=== PATIENT | female | born 1965 | race Caucasian/White ===

== ENCOUNTER 2019-12-02 14:34 | Outpatient (CLI) | payer MEDICAID, SELFPAY ==
--- NOTE | 2019-12-02 14:45 | XRR_ITS ---
PROCEDURE INFORMATION: Exam: XR Abdomen, 1 View Exam date and time: 12/02/2019 2:50 PM Age: 54 years old Clinical indication: Condition or disease; Other: Renal stone; Prior surgery; Surgery date: 6+ months; Surgery type: Stents, since removed TECHNIQUE: Imaging protocol: XR of the abdomen. Views: Frontal supine view of the abdomen. 1 View. COMPARISON: CR XR KUB [id number] 08/11/2019 1:04 PM FINDINGS: Gastrointestinal tract: Normal. No bowel dilation. Organs: Findings are suggestive of multifocal punctate renal calcifications. Bones/joints: Unremarkable. XR/XR KUB [id number] IMPRESSION: If there is desire for further evaluation, a CT scan could be performed. If there is desire for further evaluation, a CT scan could be performed.
== END 2019-12-02 14:35 | disposition home or self-care (01) ==
LOC: RAD 14:36
PROVIDERS: Family Provider Family Medicine; PCP Family Medicine; Visit Provider Urology
DX: N20.0 Calculus of kidney (principal); N30.10 Interstitial cystitis (chronic) without hematuria; N11.9 Chronic tubulo-interstitial nephritis, unspecified; N30.20 Other chronic cystitis without hematuria
CPT/HCPCS: 74018; 81001

== ENCOUNTER → 2020-03-07 11:12 | Outpatient (BNVA) | payer MEDICAID, SELFPAY | PROVIDERS: Family Provider Family Medicine; PCP Family Medicine; Visit Provider Urology | DX: N30.10 Interstitial cystitis (chronic) without hematuria (principal); N20.0 Calculus of kidney; N11.9 Chronic tubulo-interstitial nephritis, unspecified | CPT/HCPCS: 81001 ==

== ENCOUNTER 2020-06-06 02:25 | Emergency (ER) | payer MEDICAID, SELFPAY ==
[2020-06-06 02:31] VITALS: BP 124/72; PULSE 91; RESP 18; TEMP 36.6; O2SAT 96; BMI 29.0
--- NOTE | 2020-06-06 02:53 | ED_ITS ---
HPI - Abdominal Pain General: Chief Complaint: Abdominal Pain Stated Complaint: hasnt passed anything in a week Time Seen by Provider: 06/06/20 02:36 History of Present Illness: HPI narrative: 54-year-old female presents with abdominal pain, distention, and constipation. She says that she has not had a bowel movement in several days. She is tried laxatives as well as an enema at home. She started vomiting yesterday evening, and this continues this morning. She has had a low-grade temperature of 99-100 the past couple of days as well. No sick contacts. No respiratory symptoms. MD elicited complaint: abdominal pain Pertinent past history: constipation Onset (ago): day(s) Pain Consistency: constant Location: Diffuse Quality: aching and fullness Radiation: none Migration to: no migration Exacerbating factors: nothing Associated Symptoms: Reports bloating, constipation, fever(s), nausea and vomiting; Denies coffee ground emesis, diarrhea, dysuria, hematuria, hematemesis and melena Review of Systems Const: Reports: fever(s) Eyes: Denies: change in vision or blurry vision ENMT: Denies: swelling of lips/tongue, bleeding gums, change in hearing, epistaxis, post nasal drip or sinus pain Card: Denies: chest pain, palpitations or irregular heart rhythm Resp: Denies: dyspnea, productive cough, non-productive cough or wheezing GI: Reports: nausea, vomiting, constipation and bloating; Denies: hematemesis, coffee ground emesis, diarrhea or melena : Denies: dysuria, urinary frequency or hematuria Musc: Denies: neck pain or back pain Skin/Breast: Denies: rash or pruritus Neuro: Denies: headache(s), dizziness or vertigo Psych: Denies: anxiety Physical Exam Const: GENERAL APPEARANCE: well developed ORIENTATION/CONSCIOUSNESS: Yes oriented to person, Yes oriented to place and Yes oriented to time HENMT: COMMON NORMALS: normocephalic, external ears normal and Normal external nose present HEAD & SCALP: normocephalic FACE & SINUS: normal facial exam NOSE: Normal external nose present and No nasal discharge present EXTERNAL EAR: Yes external ears normal Eye: COMMON NORMALS: Equal, round and reactive pupils present, EOMs intact bilaterally and conjunctivae normal EYELID: eyelids normal CONJUNCTIVA: Yes conjunctivae normal PUPIL: Yes Equal, round and reactive pupils present Neck/C-Spine: GENERAL: No tracheal deviation Chest: COMMONS NORMALS: normal inspection of the chest CHEST: No tenderness Resp: COMMON NORMALS: clear to auscultation bilaterally EFFORT & INSPECTION: No tachypneic, No respiratory distress, No retractions, No uses accessory muscles and No tracheal deviation AUSCULTATION: clear to auscultation bilaterally, no rhonchi, no wheezes and lung sounds not diminished Cardio: COMMON NORMALS: regular rate and regular rhythm RATE: regular rate RHYTHM: regular rhythm HEART SOUNDS: no murmurs PERIPHERAL PULSES: radial pulses present GI: INSPECTION: No abdominal distension AUSCULTATION: No Hyperactive bowel sounds present and No Hypoactive bowel sounds present PALPATION: Yes Tenderness to palpation present (GI) (diffuse), Yes Guarding due to palpation p resent (GI) and No Rigid due to palpation PERCUSSION: no dullness to percussion and no tympanic to percussion Neuro: SENSORIUM/ORIENTATION: Yes oriented to person, Yes oriented to place and Yes oriented to time Psych: COMMON NORMALS: mental status grossly normal Skin: COMMON NORMALS: no rashes or lesions noted GENERAL SKIN EXAM: no rashes or lesions noted Course Vital Signs: Vital signs: Vital Signs Temperature 97.9 F 06/06/20 02:31 Pulse Rate 101 H 06/06/20 04:00 Respiratory Rate 16 06/06/20 04:00 Blood Pressure 105/73 06/06/20 04:00 Pulse Oximetry 92 06/06/20 04:00 MDM - Abdominal Pain MDM Narrative: Medical decision making narrative: 54-year-old female who reports constipation, with vomiting. Her white blood cell count is 4.4. Labs are otherwise benign. She denied significant fever or cough. CT scan shows s ome increased stool. There are densities at the bases of the lungs consistent with possible infiltrates. Again she is asymptomatic with this. Because of this, though, she will be tested for novel coronavirus. Magnesium citrate causes interstitial cystitis flares for her. Instead she will be given a prep of mineral oil and lactulose here. Lactulose for home. Lab Data: Labs: Lab Results 06/06/20 06/06/20 06/06/20 Range/Units 03:06 03:06 03:15 WBC 4.4 (4.0-10.0) 10^3/ uL RBC 4.38 (4.1-5.3) 10^6/u L Hgb 13.1 (11.5-15.3) g/dL Hct 39.7 (37.0-47.0) % MCV 90.6 (81-99) fL MCH 29.9 (28.0-34.0) pg MCHC 33.0 (30.0-36.0) g/dL RDW 12.0 L (12.1-15.1) % Plt Count 157 (130-400) 10^3/c mm MPV 9.9 (7.4-10.4) fL Neut % (Auto) 73.7 % Lymph % (Auto) 18.3 % [place] % (Auto) 7.8 % Eos % (Auto) 0.0 % Baso % (Auto) 0.0 % Neut # (Auto) 3.23 (1.8-7.7) 10^3/u L Lymph # (Auto) 0.8 (0.8-4.8) 10^3/u L [place] # (Auto) 0.3 (0.2-0.9) 10^3/u L Eos # (Auto) 0.0 (0.0-0.8) 10^3/u L Baso # (Auto) 0.0 (0.0-0.1) 10^3/u L Nucleated RBC % (a uto) 0 % Nucleated RBCs # 0.0 /100WBC Sodium 133 L (136-145) mmol/L Potassium 3.9 (3.5-5.1) mmol/L Chloride 97 L (98-107) mmol/L Carbon Dioxide 25 (22-29) mmol/L Anion Gap 14.9 (5-19) BUN 12 (6-20) mg/dL Creatinine 0.7 (0.5-0.9) mg/dL GFR Calculation 86.9 L (90-130) mL/min Glucose 117 H (65-115) mg/dL Calculated Osmolal ity 273 L (285-295) mOsm/k g Calcium 8.9 (8.5-10.5) mg/dL Total Bilirubin 0.2 (0.15-1.2) mg/dL AST 28 (0-32) U/L ALT 18 (0-33) U/L Alkaline Phosphata se 73 (35-105) IU/L Creatine Kinase 150 (26-192) U/L C-Reactive Protein 8.2 H (0.0-4.9) mg/L Total Protein 7.3 (6.6-8.7) g/dL Albumin 4.2 (3.5-5.2) g/dL Globulin 3.1 (1.3-4.6) g/dL Lipase 76 H (13-60) U/L Urine Color Yellow (Yellow) Urine Appearance Clear (CLEAR) Urine pH 5 (5-7) Ur Specific Gravit y 1.020 (1.005-1.030) Urine Protein Trace (Negative) Urine Glucose (UA) Norm (Normal) Urine Ketones 3+ H (Negative) Urine Blood 2+ H (Negative) Urine Nitrate Negative (Negative) Urine Bilirubin 1+ H (NEGATIVE) Urine Urobilinogen 1 H (Negative) mg/dL Ur Leukocyte Malgorzata ase Trace H (Negative) Urine RBC 0-4 H (0-2) /hpf Urine WBC 10-15 H (0-5) /hpf Ur Squamous Epith Cells 15-25 H (0-5) Amorphous Sediment Not Reportable Urine Bacteria 1+ H (NONE) Hyaline Casts 0-4 H Fine Granular Cast s 0-4 H /lpf Urine Mucus 1+ Discharge Plan Discharge Patient Disposition: Home Clinical Impression: Abdominal pain Qualifiers: Abdominal location: generalized Qualified Code(s): R10.84 - Generalized abdominal pain Constipation Qualifiers: Constipation type: unspecified constipation type Qualified Code(s): K59.00 - Constipation, unspecified Condition: Stable Prescriptions: New lactulose 10 gram/15 mL solution 20 gm PO BID Qty: 237 RF: 0 Discharge Orders: Discharge Order (Routine); Ordered 06/06/20 Ordered By: Miguel A Sawant Referrals: Daniel Anglin MD [Primary Care Provider] - 4-7 days Discharge Diet: Advance as tolerated Discharge Activity: Increase activity as tolerated Patient Instructions: Constipation (ED), Abdominal Pain (ED) Activity Restrictions/Additional Instructions: Return to the emergency department for ongoing fever greater than 100-1 01, vomiting liquids or medications despite treatment, blood in the stool, cough, shortness of breath, other concerning symptoms. Education as directed. Coding Level of Care Code ED Artificial Foliage Arranger for Chg Fwd Exam Comprehensive
--- NOTE | 2020-06-06 02:53 | CTR_ITS ---
PROCEDURE INFORMATION: Exam: CT Abdomen And Pelvis With Contrast Exam date and time: 06/06/2020 3:10 AM Age: 54 years old Clinical indication: Constipation; Abdominal pain; Localized; Right; Prior surgery; Surgery date: 6+ months; Surgery type: Hernia, multiple kidney stones TECHNIQUE: Imaging protocol: Computed tomography of the abdomen and pelvis with intravenous contrast. Radiation optimization: All CT scans at this facility use at least one of these dose optimization techniques: automated exposure control; mA and/or kV adjustment per patient size (includes targeted exams where dose is matched to clinical indication); or iterative reconstruction. Contrast material: OMNI 300; Contrast volume: 95 ml; Contrast route: INTRAVENOUS (IV); COMPARISON: No relevant prior studies available. RADIATION DOSE METRICS: Total DLP (mGy-cm): 1025.12 FINDINGS: Lungs: Patchy mild airspace opacity and stranding in the left lower lobe. Slight stranding in the right middle lobe along the hemidiaphragm. Horizontal focus of possible early airspace disease in the posterior right lower lobe and an approximately 11 mm nodular density slightly anterior and inferior to the horizontal density. Mediastinal space: Small hiatal hernia. Liver: 5 mm focus of decreased density in the right lobe of the liver. Smaller focus of decreased density far inferiorly in the right lobe of the liver. Gallbladder and bile ducts: No apparent calcified stones. No ductal dilation. Pancreas: Unremarkable pancreas. Spleen: No splenomegaly. Adrenals: No adrenal mass. Kidneys and ureters: Multiple stones in the kidneys. 11 mm intracortical mass in the left kidney and a few smaller masses in the right renal cortex. No hydronephrosis or ureteral stone. Stomach and bowel: Nondistended stomach. No obstruction.. Appendix: Apparent normal appendix in the right pelvis. Intraperitoneal space: No free air. Vasculature: Slight atherosclerosis. No aortic aneurysm. Lymph nodes: No enlarged nodes. Bladder: No obvious disease of the nondistended bladder. Reproductive: Hysterectomy. No separation of bowel loops from a water density ovoid mass in the left pelvis measuring 3.6 cm in greatest diameter; suspicion of origination of this mass from the left ovary. Normal right ovary. Bones/joints: Minimal spondylolisthesis at L5-S1. Soft tissues: No acute finding. CT/CT abdomen pelvis w con* [id number] IMPRESSION: 1. Patchy density in the left lower lobe suggesting pneumonia. Possible early airspace disease in the right lower lobe with the adjacent 11 mm nodular density questionably due to a mass or early consolidation. Probable slight atelectasis in the right middle lobe. For both low risk and high risk patients, consider CT at 3 months, PET/CT or biopsy. (Wali et al., Fleischner Society, 2017) 2. Nephrolithiasis. No obstructing ureteral stone. Renal masses too small to characterize. No further workup recommended. 3. Subcentimeter liver masses, too small to characterize. In a low-risk patient, these lesions are most likely to be benign and no further follow-up is recommended. In a high-risk patient, recommend follow-up MRI in 3-6 months (or earlier if warranted by the patient's specific clinical circumstances). 4. Possible left ovarian simple cyst versus peritoneal inclusion cyst; adhesion of bowel loops to this left pelvic lesion not excluded. 5. Small hiatal hernia. Other findings detailed above. Radiation Dose CTDIVOL = (mGy): DLP = 1025.12 (mGy-cm)
[2020-06-06 03:11] VITALS: BP 129/67; PULSE 73; RESP 16; O2SAT 97
[2020-06-06 03:13] LABS: Hematocrit 39.7 % (37.0-47.0); Hemoglobin 13.1 g/dL (11.5-15.3); Lymphocytes # 0.8 10^3/uL (0.8-4.8); Lymphocytes % 18.3 %; Mean Corpuscular Hemoglobin 29.9 pg (28.0-34.0); Mean Corpuscular Volume 90.6 fL (81-99); Mean Platelet Volume 9.9 fL (7.4-10.4); Monocytes # 0.3 10^3/uL (0.2-0.9); Monocytes % 7.8 %; Neutrophils # 3.23 10^3/uL (1.8-7.7); Neutrophils % 73.7 %; Nucleated Red Blood Cells % 0 %; Platelet Count 157 10^3/cmm (130-400); Red Blood Count 4.38 10^6/uL (4.1-5.3); White Blood Count 4.4 10^3/uL (4.0-10.0)
[2020-06-06 03:21] VITALS: RESP 12; O2SAT 96
[2020-06-06] MEDS: ondansetron 2 mg/ML SDV 2 mL 4 MG IVP (03:21)
[2020-06-06] MEDS: HYDROmorphone 1 mg/mL INJ 1 mL IVP (03:21)
[2020-06-06 03:31] LABS: Alanine Aminotransferase 18 U/L (0-33); Albumin Level 4.2 g/dL (3.5-5.2); Alkaline Phosphatase 73 IU/L (35-105); Anion Gap 14.9 (5-19); Aspartate Amino Transferase 28 U/L (0-32); Blood Urea Nitrogen 12 mg/dL (6-20); Calcium 8.9 mg/dL (8.5-10.5); Carbon Dioxide 25 mmol/L (22-29); Chloride 97 mmol/L (98-107); Creatine Phosphokinase 150 U/L (26-192); Globulin 3.1 g/dL (1.3-4.6); Glomerular Filtration Rate 86.9 mL/min (90-130); Glucose 117 mg/dL (65-115); Lipase 76 U/L (13-60); Osmolality Calculated 273 mOsm/kg (285-295); Potassium 3.9 mmol/L (3.5-5.1); Sodium 133 mmol/L (136-145); Total Bilirubin 0.2 mg/dL (0.15-1.2); Total Protein 7.3 g/dL (6.6-8.7)
[2020-06-06] MEDS: iohexol 300 mg/mL 100 mL Btl IV (03:43)
[2020-06-06 03:49] LABS: C Reactive Protein 8.2 mg/L (0.0-4.9)
[2020-06-06 04:00] VITALS: BP 105/73; PULSE 101; RESP 16; O2SAT 92
[2020-06-06 04:13] LABS: Add Urine Microscopic? YES; Bilirubin Urine 1+ (NEGATIVE); Blood Urine 2+ (Negative); Glucose Urine UA Norm (Normal); Ketones Urine 3+ (Negative); Leukocyte Esterase Urine Trace (Negative); Nitrate Urine Negative (Negative); Protein Urine Trace (Negative); Urine Appearance Clear (CLEAR); Urine Color Yellow (Yellow); Urobilinogen Urine 1 mg/dL (Negative); pH Urine 5 (5-7)
[2020-06-06 04:26] LABS: RBC Urine 0-4 /hpf (0-2); Squamous Epithelial Cell Urine 15-25 (0-5)
[2020-06-06 04:27] LABS: Add Urine Culture? No; Bacteria Urine 1+; Fine Granular Casts Urine 0-4 /lpf; Hyaline Casts Urine 0-4; Mucus Urine 1+
[2020-06-06 05:28] VITALS: BP 128/77; PULSE 62; RESP 16; O2SAT 98
[2020-06-06] MEDS: mineral oil 30 mL UDC PO (05:29)
[2020-06-06] MEDS: lactulose oral liq 20 gm/30 mL UDC PO (05:29)
[2020-06-07 15:37] LABS: Quest SARS-CoV-2 RNA DETECTED (NOT DETECTED)
== END 2020-06-06 05:41 | disposition home or self-care (01) ==
PROVIDERS: Absent Provider Urology; Emergency Provider Emergency Medicine; PCP Family Medicine
DX: R10.84 Generalized abdominal pain (principal); K59.00 Constipation, unspecified
CPT/HCPCS: 12345; 74177; 80053; 81001; 82550; 83690; 85025; 86140; 87635; 96374; 96375; 99283; J1170; J2405; Q9967

== ENCOUNTER 2020-06-17 10:39 | Emergency (ER) | payer MEDICAID, SELFPAY ==
[2020-06-17 10:50] VITALS: BP 128/65; PULSE 86; RESP 18; TEMP 37.1; O2SAT 100; BMI 28.8
[2020-06-17 11:01] VITALS: PULSE 86; RESP 17; O2SAT 99
[2020-06-17 11:36] VITALS: BP 128/65; PULSE 80; RESP 14; O2SAT 100
--- NOTE | 2020-06-17 11:36 | W.ED.FEMALGU ---
HPI - Female Genitourinary General: Chief complaint: Urogenital-Female Stated complaint: COVID +/POSS UTI Time Seen by Provider: 06/17/20 10:50 History of Present Illness: HPI Narrative: 54 yo female pt who presents complaining of nausea. Pt tested positive for Covid19 on 06/06. she has no cough or congestion. Denies vomiting or diarrhea. She has a history of medullary sponge kidney she denies any dysuria urgency or frequency no hematuria. MD elicited complaint: dysuria Pertinent past history: pyelonephritis and other (nephrolithias, medullary kidney) Onset (ago): day(s) Location of symptoms: flank Severity: moderate Female Urogenital Radiation: Non-Radiating Quality of pain: cramping Consistency: constant Vaginal discharge: none Vaginal bleeding: none Urinary symptoms: Dysuria and Flank Pain Relieving factors: none Associated symptoms: Reports abdominal pain and fevers/chills; Deny short of breath, headache(s), nausea, rash, seizures, syncope, vaginal discharge or weakness Treatment prior to arrival: none Review of Systems ENMT: Denies: throat pain, ear or mastoid pain, nasal discharge or nasal congestion Card: Denies: syncope Resp: Denies: dyspnea, productive cough or non-productive cough GI: Reports: abdominal pain; Denies: nausea : Denies: vaginal discharge Skin/Breast: Denies: rash or pruritus Neuro: Denies: headache(s) PFSH ED PFSH: Medical History (Updated 06/17/20 @ 13:07 by Gerardo Metzger DO) Hernia Interstitial cystitis Medullary sponge kidney Surgical History (Updated 06/17/20 @ 11:43 by Gerardo Metzger DO) H/O lithotripsy H/O: hysterectomy Physical Exam Const: COMMON NORMALS: no acute distress GENERAL APPEARANCE: cooperative and comfortable ORIENTATION/CONSCIOUSNESS: Yes awake, Yes oriented to person, Yes oriented to place and Yes oriented to time HENMT: COMMON NORMALS: normocephalic and atraumatic HEAD & SCALP: normocephalic and atraumatic Neck/C-Spine: COMMON NORMALS: no JVD Resp: COMMON NORMALS: normal respiratory effort, No retractions, No use of accessory muscles and clear to auscultation bilaterally AUSCULTATION: clear to auscultation bilaterally Cardio: COMMON NORMALS: no JVD, regular rate, regular rhythm and No murmurs present (Cardio) RATE: regular rate RHYTHM: regular rhythm GI: COMMON NORMALS: Soft to palpation and No hepatosplenomegaly present AUSCULTATION: Yes normoactive bowel sounds PALPATION: Yes Soft to palpation, No Tenderness to palpation present (GI), No Guarding due to palpation present (GI) and Yes No hepatosplenomegaly present Extremity: COMMON NORMALS: normal to inspection, capillary refill normal, no clubbing, cyanosis or edema, no calf tenderness and no pedal edema Neuro: SENSORIUM/ORIENTATION: Yes oriented to person, Yes oriented to place and Yes oriented to time Skin: COMMON NORMALS: no rashes or lesions noted GENERAL SKIN EXAM: no rashes or lesions noted Course Vital Signs: Vital signs: Vital Signs Temperature 98.7 F 06/17/20 10:50 Pulse Rate 69 06/17/20 13:39 Respiratory Rate 14 06/17/20 13:39 Blood Pressure 120/73 06/17/20 13:39 Pulse Oximetry 99 06/17/20 13:39 MDM - Female MDM Narrative: Medical decision making narrative: No signs of infection in the urine continue current medications follow-up with Dr. Ferguson next week return to the emergency room as further problems. Lab Data: Attestation: I reviewed the patient's lab results. Labs: Lab Results 06/17/20 06/17/20 06/17/20 Range/Units 11:39 11:39 12:00 WBC 11.8 H (4.0-10.0) 10^3/ uL RBC 4.20 (4.1-5.3) 10^6/u L Hgb 12.4 (11.5-15.3) g/dL Hct 38.6 (37.0-47.0) % MCV 91.9 (81-99) fL MCH 29.5 (28.0-34.0) pg MCHC 32.1 (30.0-36.0) g/dL RDW 12.0 L (12.1-15.1) % Plt Count 314 (130-400) 10^3/c mm MPV 9.5 (7.4-10.4) fL Neut % (Auto) 80.6 % Lymph % (Auto) 11.7 % [place] % (Auto) 6.8 % Eos % (Auto) 0.1 % Baso % (Auto) 0.3 % Neut # (Auto) 9.48 H (1.8-7.7) 10^3/u L Lymph # (Auto) 1.4 (0.8-4.8) 10^3/u L [place] # (Auto) 0.8 (0.2-0.9) 10^3/u L Eos # (Auto) 0.0 (0.0-0.8) 10^3/u L Baso # (Auto) 0.0 (0.0-0.1) 10^3/u L Nucleated RBC % (a uto) 0 % Nucleated RBCs # 0.0 /100WBC Sodium 136 (136-145) mmol/L Potassium 4.4 (3.5-5.1) mmol/L Chloride 102 (98-107) mmol/L Carbon Dioxide 24 (22-29) mmol/L Anion Gap 14.4 (5-19) BUN 8 (6-20) mg/dL Creatinine 0.7 (0.5-0.9) mg/dL GFR Calculation 86.9 L (90-130) mL/min Glucose 120 H (65-115) mg/dL Calculated Osmolal ity 279 L (285-295) mOsm/k g Calcium 9.1 (8.5-10.5) mg/dL Total Bilirubin 0.3 (0.15-1.2) mg/dL AST 15 (0-32) U/L ALT 11 (0-33) U/L Alkaline Phosphata se 83 (35-105) IU/L Total Protein 7.1 (6.6-8.7) g/dL Albumin 3.7 (3.5-5.2) g/dL Globulin 3.4 (1.3-4.6) g/dL Urine Color Yellow (Yellow) Urine Appearance Clear (CLEAR) Urine pH 6.0 (5-7) Ur Specific Gravit y 1.020 (1.005-1.030) Urine Protein Neg (Negative) Urine Glucose (UA) Norm (Normal) Urine Ketones Negative (Negative) Urine Blood Neg (Negative) Urine Nitrate Negative (Negative) Urine Bilirubin Neg (Negative) Urine Urobilinogen Norm (Negative) mg/dL Ur Leukocyte Malgorzata ase Negative (Negative) Discharge Plan Discharge Patient Disposition: Home Clinical Impression: Interstitial cystitis, Medullary sponge kidney Condition: Stable Prescriptions: No Action gentamicin 20 mg/2 mL Solution See Rx Instructions .ROUTE .COMPLEX RF: 0 methadone 10 mg Tablet 20 mg PO BID RF: 0 Zofran 4 mg Tablet 4 mg PO Q4H PRN (Reason: Nausea) RF: 0 Bactrim DS 800-160 mg Tablet 1 tab PO BID RF: 0 oxycodone 15 mg Tablet 15 mg PO Q6H PRN (Reason: Pain) RF: 0 Solu-Cortef 100 mg Recon Soln 100 mg IM DIRECTED RF: 0 Flomax 0.4 mg Capsule 0.4 mg PO DAILY RF: 0 trazodone 100 mg Tablet 100 mg PO BEDTIME RF: 0 Benadryl 25 mg Capsule 25 mg PO DAILY RF: 0 estradiol 0.5 mg Tablet 0.5 mg PO DAILY RF: 0 heparin (porcine) 5,000 unit/mL Solution 5,000 unit SUBCUT DIRECTED RF: 0 progesterone micronized 100 mg Capsule 100 mg PO QAM RF: 0 Vitamin D3 25 mcg (1,000 unit) Capsule 25 mcg PO DAILY RF: 0 Macrobid 100 mg Capsule 100 mg PO Q12H RF: 0 lactulose 10 gram/15 mL solution 20 gm PO BID PRN (Reason: Constipation) RF: 0 baclofen 10 mg Tablet 10 mg PO TID PRN (Reason: Pain) RF: 0 Discharge Orders: Discharge Order (Routine); Ordered 06/17/20 Ordered By: Gerardo Metzger Referrals: Daniel Anglin MD [Primary Care Provider] - Discharge Diet: Usual diet Discharge Activity: Increase activity as tolerated Activity Restrictions/Additional Instructions: Follow-up with Dr. Ferguson next week. Discharge Date/Time: 06/17/20 13:40 Coding Level of Care Code ED Sign Wirer for Chg Fwd Exam Comprehensive
[2020-06-17] MEDS: ondansetron 2 mg/ML SDV 2 mL 4 MG IVP (11:42)
[2020-06-17 11:44] LABS: Basophils % 0.3 %; Eosinophils % 0.1 %; Hematocrit 38.6 % (37.0-47.0); Hemoglobin 12.4 g/dL (11.5-15.3); Lymphocytes # 1.4 10^3/uL (0.8-4.8); Lymphocytes % 11.7 %; Mean Corpuscular HGB Conc 32.1 g/dL (30.0-36.0); Mean Corpuscular Hemoglobin 29.5 pg (28.0-34.0); Mean Corpuscular Volume 91.9 fL (81-99); Mean Platelet Volume 9.5 fL (7.4-10.4); Monocytes # 0.8 10^3/uL (0.2-0.9); Monocytes % 6.8 %; Neutrophils # 9.48 10^3/uL (1.8-7.7); Neutrophils % 80.6 %; Nucleated Red Blood Cells % 0 %; Platelet Count 314 10^3/cmm (130-400); White Blood Count 11.8 10^3/uL (4.0-10.0)
--- NOTE | 2020-06-17 12:05 | CT_ITS ---
WS: [id number] CT ABDOMEN PELVIS TECHNIQUE: Noncontrast CT of the abdomen and pelvis with coronal and sagittal reformatted images. CLINICAL INFORMATION: flank pain COMPARISON: June 06, 2020 DLP: 1187.[address] scans at [facility] use at least one of these dose optimization techniques: automat ed exposure control; mA and/or kV adjustment per patient size (includes targeted exams where dose is matched to clinical indication); or iterative reconstruction. FINDINGS: Noncontrast liver is normal. Focal fatty or small cavernous hemangioma near the falciform ligament un changed from recent exam. Normal gallbladder. Adrenal glands are normal. Normal noncontrast spleen. S mall esophageal hiatal hernia. Chronic emphysematous changes in the lung bases. Patchy opacities in t he lung bases improved from previous. Bilateral subcentimeter calyceal tip calculi. No obstructing renal parenchymal or ureteral calculi. N o hydronephrosis. Both ureters are decompressed. No evidence of small large bowel obstruction. Normal caliber abdominal aorta. Left adnexal cyst measu ring 3.[address]/CT kidney stone [id number] IMPRESSION: 1. No obstructing ureteral calculi. No hydronephrosis. 2. Bilateral subcentimeter nonobstructing calyceal tip calculi 3. Normal visualized small and large bowel. No evidence of bowel obstruction. 4. Low-attenuation lesion left adnexa measuring 2.3 x 3.[address] This can be followed up with ultrasound. 5. Normal caliber abdominal aorta. 6. Hazy groundglass and nodular opacities in the lung bases compatible with vi ral pneumonia. This is improved since the CT abdomen pelvis June 06, 2020 7. Small esophageal hiatal hernia. Notified Gerardo Metzger DO at 06/17/2020 12:56 PM.
[2020-06-17 12:09] LABS: Alanine Aminotransferase 11 U/L (0-33); Albumin Level 3.7 g/dL (3.5-5.2); Alkaline Phosphatase 83 IU/L (35-105); Anion Gap 14.4 (5-19); Aspartate Amino Transferase 15 U/L (0-32); Blood Urea Nitrogen 8 mg/dL (6-20); Calcium 9.1 mg/dL (8.5-10.5); Carbon Dioxide 24 mmol/L (22-29); Chloride 102 mmol/L (98-107); Creatinine Clr Calc Pharmacy 100.8409; Globulin 3.4 g/dL (1.3-4.6); Glomerular Filtration Rate 86.9 mL/min (90-130); Glucose 120 mg/dL (65-115); Osmolality Calculated 279 mOsm/kg (285-295); Potassium 4.4 mmol/L (3.5-5.1); Sodium 136 mmol/L (136-145); Total Bilirubin 0.3 mg/dL (0.15-1.2); Total Protein 7.1 g/dL (6.6-8.7)
[2020-06-17 12:14] LABS: Add Urine Microscopic? NO
[2020-06-17 12:31] LABS: Bilirubin Urine Neg (Negative); Blood Urine Neg (Negative); Glucose Urine UA Norm (Normal); Ketones Urine Negative (Negative); Leukocyte Esterase Urine Negative (Negative); Nitrate Urine Negative (Negative); Protein Urine Neg (Negative); Urine Appearance Clear (CLEAR); Urine Color Yellow (Yellow); Urobilinogen Urine Norm (Negative)
[2020-06-17 13:39] VITALS: BP 120/73; PULSE 69; RESP 14; O2SAT 99
--- NOTE | 2020-06-22 14:57 | DCPLANNER ---
Addendum entered by Lay Harmon 06/29/20 14:29: mailroom manager called the office of Dr. Ferguson to confirm if an appointment had been scheduled for patient. mailroom manager spoke with [facility], was told that they are trying to schedule an appointment, have spoken with patient. Appointment not scheduled at this time, but the clinic is working on getting an appointment scheduled. Original Note: mailroom manager had message to schedule a follow up appointment for patient with Dr. Ferguson. mailroom manager called the office of Dr. Ferguson, spoke with [facility], gave clinic patients information. mailroom manager was told that patients information would be printed and given to Adrianna for review. Clinic will call patient with appointment information.
--- NOTE | 2020-07-06 07:45 | DCPLANNER ---
Patient had a follow up appointment scheduled for 07.01.[address] Ferguson - patient did attend appointment.
== END 2020-06-17 13:40 | disposition home or self-care (01) ==
PROVIDERS: Emergency Provider Family Medicine; PCP Family Medicine
DX: N30.10 Interstitial cystitis (chronic) without hematuria (principal); Q61.5 Medullary cystic kidney
CPT/HCPCS: 12345; 74176; 80053; 81003; 85025; 96374; 99283; J2405

== ENCOUNTER → 2020-07-01 10:02 | Outpatient (BNVA) | payer MEDICAID, SELFPAY | PROVIDERS: Family Provider Family Medicine; PCP Family Medicine; Visit Provider Urology | DX: N30.10 Interstitial cystitis (chronic) without hematuria (principal) | CPT/HCPCS: 80053; 81001 ==

== ENCOUNTER 2020-08-25 12:48 | Outpatient (CLI) | payer MEDICAID, SELFPAY ==
--- NOTE | 2020-08-25 13:00 | US_ITS ---
WS: [id number] RENAL ULTRASOUND HISTORY: RENAL MASS COMPARISON: 10/16/2017 TECHNIQUE: 2-D and color Doppler imaging of the kidney submitted. Right kidney: 10.9 cm x 5.3 cm x 5.1 cm. Increased echogenicity. Mild thinning of the cortex. No hydronephrosis. Small extrarenal pelvis. Left kidney: 11.0 cm x 4.1 cm x 4.5 cm. Mild increased echogenicity throughout the kidney. LEFT renal pelvis is dilated. Aorta: Normal. Urinary Bladder: Normal distention. US/US renal BI* [id number] IMPRESSION: 1. New mild LEFT hydronephrosis. 2. No significant RIGHT hydronephrosis.
--- NOTE | 2020-08-25 13:01 | US_ITS ---
WS: [id number] TRANSABDOMINAL PELVIC AND TRANSVAGINAL PELVIC ULTRASOUND HISTORY: RENAL MASS COMPARISON: 01/27/2019 and 06/17/2020 Prior hysterectomy. No midline mass. Right ovary: Not visualized. Left ovary: 2.9 cm x 2.9 cm x 2.2 cm. Again noted is a LEFT adnexal cyst seen best on transvaginal im aging which is probably an ovarian cysts. No separate ovary was identified by CT on 06/17/2020. LEFT o varian cyst or paraovarian cyst has been previous the described. US/US pelvic with transvaginal IMPRESSION: No significant increase in size of the LEFT ovarian or LEFT paraovarian cyst si nce 01/27/2019
== END 2020-08-25 12:49 | disposition home or self-care (01) ==
LOC: RAD 12:58
PROVIDERS: PCP Family Medicine; Visit Provider Family Medicine
DX: N28.89 Other specified disorders of kidney and ureter (principal); N13.30 Unspecified hydronephrosis
CPT/HCPCS: 76770; 76830; 76856

== ENCOUNTER → 2020-08-27 11:00 | Outpatient (BNVA) | payer MEDICAID, SELFPAY | PROVIDERS: PCP Family Medicine; Visit Provider Nurse Practitioner | DX: J02.9 Acute pharyngitis, unspecified (principal) | CPT/HCPCS: 87071; 87880 ==

== ENCOUNTER 2020-10-04 13:10 | Outpatient (CLI) | payer MEDICAID, SELFPAY ==
--- NOTE | 2020-10-04 13:30 | XR_ITS ---
WS: [id number] Exam: XR KUB [id number] Date/Time of Exam: 10/04/2020 1:30 PM Reason For Exam: RENAL STONE Comparison 12/02/2019. There are numerous small calcifications superimposing both kidneys most likely renal calculi. No yi l obstruction or free air. Visualized organ margins are intact. Moderate amount of stool in the trans verse and right colon. XR/XR KUB [id number] IMPRESSION: 1. Multiple small calcifications superimposing the bilateral renal silhouettes most likely representing renal stones. 2. No acute abdominal process. Moderate amount of stool in the colon.
== END 2020-10-04 13:11 | disposition home or self-care (01) ==
LOC: RAD 13:17
PROVIDERS: PCP Family Medicine; Visit Provider Urology
DX: N20.0 Calculus of kidney (principal)
CPT/HCPCS: 74018; 81003

== ENCOUNTER 2020-10-26 14:53 | Outpatient (CLI) | payer MEDICAID, SELFPAY ==
--- NOTE | 2020-10-26 15:00 | US_ITS ---
WS: [id number] RENAL ULTRASOUND HISTORY: CHRONIC PYELONEPHRITIS COMPARISON: 08/25/2020 TECHNIQUE: 2-D and color Doppler imaging of the kidney submitted. Right kidney: 11.3 cm x 3.8 cm x 4.0 cm. Focal cortical thinning or scarring upper pole RIGHT kidney. No hydronephrosis. Echogenic foci within the calyces are probably small calcifications. No hydronephrosis. Left kidney: 11.7 cm x 4.1 cm x 4.2 cm. Normal size kidney with normal cortex. Echogenic foci within the calyces measuring up to 1.0 cm. No o bstruction. Aorta: Normal. Urinary Bladder: Normal distention. US/US renal BI* [id number] IMPRESSION: 1. No hydronephrosis. 2. Focal cortical thinning upper pole RIGHT kidney. 3. Bilateral nephrolithiasis.
== END 2020-10-26 14:54 | disposition home or self-care (01) ==
LOC: US 14:57
PROVIDERS: PCP Family Medicine; Visit Provider Urology
DX: N11.9 Chronic tubulo-interstitial nephritis, unspecified (principal); N20.0 Calculus of kidney
CPT/HCPCS: 76770

== ENCOUNTER → 2020-10-27 17:39 | Outpatient (BNVA) | payer MEDICAID, SELFPAY | PROVIDERS: PCP Family Medicine; Visit Provider Urology | DX: Q61.5 Medullary cystic kidney (principal); N20.0 Calculus of kidney; N30.10 Interstitial cystitis (chronic) without hematuria; N13.30 Unspecified hydronephrosis | CPT/HCPCS: 81003 ==

== ENCOUNTER 2020-11-29 11:20 | Outpatient (CLI) | payer MEDICAID, SELFPAY ==
--- NOTE | 2020-11-29 11:26 | CT_ITS ---
WS: [id number] CT CHEST WITH INTRAVENOUS CONTRAST HISTORY: LUNG NODULE TECHNIQUE: Contiguous 5 mm axial imaging performed on the thorax. Coronal and sagittal reformats are submitted. All CT scans at [facility] use at least one of these dose optimization techniq ues: automated exposure control; mA and/or kV adjustment per patient size (includes targeted exams wh ere dose is matched to clinical indication); or iterative reconstruction. CONTRAST: Omnipaque 300; 95 mL IV. DLP: 857.99 mGycm COMPARISON: 02/24/2014 and 06/17/2020 Lungs and central airway: Improved aeration at the lung bases. No pulmonary mass or nodule is identif ied. Lungs are hyperinflated from emphysema. Pleura: Normal. No pleural effusion. Heart and pericardium: Normal size heart with no pericardial effusion. Mediastinum and pete: No mediastinum or hilar adenopathy. Vessels: Normal size aortic and pulmonary artery. No coronary artery calcifications. Chest wall and lower neck: 7 mm RIGHT thyroid nodule. No adenopathy. Chest wall is unremarkable. Upper abdomen: Slightly contracted gallbladder. Bilateral nonobstructing nephrolithiasis. 6 mm cyst m id anterior LEFT kidney. No adrenal mass. Small hiatal hernia. Osseous structures: Slight increase in thoracic kyphosis. CT/CT chest w con* [id number] IMPRESSION: 1. No pulmonary nodule or pneumonia. Resolved airspace disease since 2019. 2. No adenopathy. 3. Bilateral nonobstructing renal calcifications.
[2020-11-29] MEDS: iohexol 300 mg/mL 100 mL Btl IV (11:46)
== END 2020-11-29 11:21 | disposition home or self-care (01) ==
LOC: RADWPI 11:23
PROVIDERS: PCP Family Medicine; Visit Provider Family Medicine
DX: R91.8 Other nonspecific abnormal finding of lung field (principal); N28.89 Other specified disorders of kidney and ureter
CPT/HCPCS: 71260; Q9967

== ENCOUNTER 2021-01-25 14:30 | Outpatient (CLI) | payer MEDICAID, SELFPAY ==
--- NOTE | 2021-01-25 14:30 | XR_ITS ---
WS: [id number] KUB, AP view, 01/25/2021 Clinical Data: N20.0 - Calculus of kidney Comparison: KUB, 10/04/2020. Findings: No abnormal intraabdominal masses are seen. There is no dilatated small bowel or evidence of obstruct ion. There are multiple calcifications overlying both kidneys which are probably renal calculi. Fecal mate rial in colon gas obscure detail over the kidneys. The true pelvis is unremarkable. There is osteitis pubis. XR/XR KUB [id number] Impression: Multiple small bilateral renal calculi.
== END 2021-01-25 14:31 | disposition home or self-care (01) ==
LOC: RAD 14:34
PROVIDERS: PCP Family Medicine; Visit Provider Urology
DX: N20.0 Calculus of kidney (principal)
CPT/HCPCS: 74018; 81003

== ENCOUNTER 2021-02-09 15:05 | Outpatient (CLI) | payer MEDICAID, SELFPAY ==
--- NOTE | 2021-02-09 15:07 | MM_ITS ---
WS: [id number] BILATERAL SCREENING DIGITAL MAMMOGRAM WITH CAD HISTORY: SCREENING COMPARISON: 09/24/2018 and 11/04/2014 Bilateral CC and MLO views submitted. Computer aided detection analyzed. Breast composition: There are scattered areas of fibroglandular density. No suspicious masses, microc alcifications or architectural distortion. Benign calcification towards the RIGHT axillary tail has b een present on multiple prior examinations. MM/[place] [id number] IMPRESSION: BI-RADS: 2-Benign FOLLOW UP: 1 Year Follow-up
== END 2021-02-09 15:06 | disposition home or self-care (01) ==
LOC: RADSHAW 15:07
PROVIDERS: PCP Family Medicine; Visit Provider Family Medicine
DX: Z12.31 Encounter for screening mammogram for malignant neoplasm of breast (principal)
CPT/HCPCS: 77067

== ENCOUNTER 2021-05-02 15:03 | Outpatient (CLI) | payer MEDICAID, SELFPAY ==
--- NOTE | 2021-05-02 15:00 | XR_ITS ---
WS: [id number] XR KUB [id number] REASON FOR EXAM: RENAL CALCULI FINDINGS: There are multiple bilateral renal calculi. Compared to the examination of 01/24/2021 the number, size , and distribution of the renal calculi appears unchanged. No calculi are identified along the course of the ureters and no calculi are seen in the region of th e bladder. No other significant abdominal finding. XR/XR KUB [id number] IMPRESSION: Stable multiple bilateral renal calculi.
== END 2021-05-02 15:04 | disposition home or self-care (01) ==
LOC: RAD 15:06
PROVIDERS: PCP Family Medicine; Visit Provider Urology
DX: N20.0 Calculus of kidney (principal)
CPT/HCPCS: 74018; 81003

== ENCOUNTER 2021-08-08 11:39 | Outpatient (CLI) | payer MEDICAID, SELFPAY ==
--- NOTE | 2021-08-08 11:44 | XRR_ITS ---
PROCEDURE INFORMATION: Exam: XR Abdomen Exam date and time: 08/08/2021 11:44 AM Age: 55 years old Clinical indication: Condition or disease; Kidney or ureter condition; Calculus (stone) in kidney; Prior surgery; Surgery type: Kidney stones, hernia, hyst; Additional info: Renal calculi TECHNIQUE: Imaging protocol: XR of the abdomen. Views: Frontal supine view of the abdomen. 1 View. COMPARISON: CR XR KUB [id number] 05/02/2021 3:18 PM FINDINGS: Gastrointestinal tract: Moderate dilation of the colon, similar to prior study. Large amount of stool in the right side of the colon, increased from prior study. Findings are consistent with ileus. Bones/joints: Osteitis pubis is noted. Other findings: Bilateral renal calculi, similar to prior study. XR/XR KUB [id number] IMPRESSION: 1. Moderate dilation of the colon, similar to prior study. Large amount of stool in the right side of the colon, increased from prior study. Findings are consistent with ileus. 2. Bilateral renal calculi, similar to prior study. Radiation Dose CTDIVOL = (mGy): DLP = (mGy-cm)
== END 2021-08-08 11:40 | disposition home or self-care (01) ==
LOC: RAD 11:42
PROVIDERS: PCP Family Medicine; Visit Provider Urology
DX: N20.0 Calculus of kidney (principal)
CPT/HCPCS: 74018; 81003

== ENCOUNTER 2022-02-12 13:57 | Outpatient (CLI) | payer MEDICAID, SELFPAY ==
--- NOTE | 2022-02-12 14:07 | XR_ITS ---
WS: [id number] XR KUB [id number] REASON FOR EXAM: Kidney Stone FINDINGS: There are multiple bilateral renal calculi. Compared to the examination of 08/08/2021, the number, siz e, and distribution of the renal calculi appears unchanged. No calculi are identified along the course of the ureters and no calculi are seen in the region of th e bladder. 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 No other significant abnormality. XR/XR KUB [id number] IMPRESSION: Stable bilateral renal calculi.
== END 2022-02-12 13:58 | disposition home or self-care (01) ==
LOC: RAD 13:59
PROVIDERS: PCP Family Medicine; Visit Provider Urology
DX: N20.0 Calculus of kidney (principal); N30.20 Other chronic cystitis without hematuria; Q61.5 Medullary cystic kidney; N30.10 Interstitial cystitis (chronic) without hematuria; N11.9 Chronic tubulo-interstitial nephritis, unspecified
CPT/HCPCS: 74018; 81003; 99213

== ENCOUNTER 2022-06-23 10:39 | Emergency (ER) | payer MEDICAID, SELFPAY ==
[2022-06-23 10:42] VITALS: BP 126/80; PULSE 75; RESP 14; TEMP 36.8; O2SAT 98; BMI 26.9
--- NOTE | 2022-06-23 10:50 | USR_ITS ---
PROCEDURE INFORMATION: Exam: US Duplex Left Lower Extremity Veins, Limited Exam date and time: 06/23/2022 11:07 AM Age: 56 years old Clinical indication: Pain; Leg, lower; Left; Additional info: Foot swelling TECHNIQUE: Imaging protocol: Real-time Duplex ultrasound of the Left Lower Extremity with 2-D sharpe scale, color Doppler flow and spectral waveform analysis with image documentation. Limited exam focused on the left lower extremity veins. COMPARISON: US renal BI* [id number] 10/26/2020 3:21 PM FINDINGS: Left deep veins: Unremarkable. The common femoral, femoral, proximal profunda femoral and popliteal veins are patent without thrombus. Normal Doppler waveforms. Normal compressibility and/or augmentation response. Left superficial veins: Greater saphenous vein near the left ankle shows intraluminal thrombus, noncompressibility, and decreased flow. These findings correspond to superficial thrombophlebitis. Soft tissues: Unremarkable. US/[place] [id number] IMPRESSION: 1. No evidence of deep vein thrombosis. 2. Left saphenous vein at the ankle with superficial thrombophlebitis
--- NOTE | 2022-06-23 10:50 | XRR_ITS ---
PROCEDURE INFORMATION: Exam: XR Left Foot Exam date and time: 06/23/2022 11:02 AM Age: 56 years old Clinical indication: Pain; Foot; Left; Additional info: Top of foot pain and red TECHNIQUE: Imaging protocol: Radiologic exam of the Left foot. Views: 3 or more views. COMPARISON: No relevant prior studies available. FINDINGS: Bones/joints: Normal. Soft tissues: Normal. XR/XR foot LT min 3V* [id number] IMPRESSION: No acute findings.
--- NOTE | 2022-06-23 10:52 | ED_ITS ---
HPI - General Adult General: Chief complaint: General Medical Stated complaint: Foot pain Time Seen by Provider: 06/23/22 10:48 Source: patient Mode of arrival: ambulatory Limitations: no limitations History of Present Illness: 56-year-old female states she mowed her yard yesterday and noticed she had some swelling and some redness and pain to the top of her left foot. She does have a small area of erythema she denies any known injuries she states her pain is a 2 out of 10 denies fever denies any vomiting or diarrhea Associated symptoms: Deny chest pain, dyspnea, headache(s), nausea, rash or vomiting Review of Systems Const: Denies: fever(s), chills, body aches or change in appetite Eyes: Denies: blurry vision or eye discomfort ENMT: Denies: throat pain or dental pain Card: Denies: chest pain Resp: Denies: dyspnea GI: Denies: abdominal pain, nausea, vomiting or diarrhea : Denies: dysuria Musc: Reports: extremity pain Skin/Breast: Denies: rash Neuro: Denies: headache(s) Psych: Denies: depression Brett/Lymph: Denies: easy bruising All/Imm: Denies: urticaria PFSH ED PFSH: Medical History Chronic cystitis Chronic interstitial cystitis Chronic pyelonephritis Hernia Medullary sponge kidney Renal calculi Surgical History H/O dilation and curettage H/O foot surgery H/O hernia repair H/O lithotripsy H/O lithotripsy H/O: hysterectomy H/O: hysterectomy S/P cystoscopy with ureteral stent placement S/P tonsillectomy Family History Father , at age 64 CAD (coronary artery disease) Diabetes Stroke Hypertension Hyperlipidemia Mother Hypertension Social History Smoking and tobacco status: never smoked Alcohol intake: never Marital status: Current occupational status: disabled History of recent travel: No Current gender identity: Female Physical Exam Const: COMMON NORMALS: no acute distress, patient oriented x3 and healthy appearing HENMT: COMMON NORMALS: normocephalic and atraumatic HEAD & SCALP: normocephalic and atraumatic Eye: COMMON NORMALS: conjunctivae normal CONJUNCTIVA: Yes conjunctivae normal Neck/C-Spine: COMMON NORMALS: full ROM and supple Chest: COMMONS NORMALS: normal inspection of the chest Resp: COMMON NORMALS: normal respiratory effort Cardio: COMMON NORMALS: regular rate and No murmurs present (Cardio) RATE: regular rate GI: INSPECTION: Yes normal to inspection Extremity: COMMON NORMALS: full ROM NARRATIVE EXTREMITY EXAM: Slight tenderness to the left foot has some mild erythema the dorsum of the foot Neuro: COMMON NORMALS: patient oriented x3, moves all extremities and no focal motor deficits Psych: COMMON NORMALS: mental status grossly normal, Normal thought process present and cooperative THOUGHT PROCESS: Normal thought process present Skin: COMMON NORMALS: no rashes or lesions noted and no wounds GENERAL SKIN EXAM: no rashes or lesions noted Course Vital Signs: Vital signs: Vital Signs Temperature 98.2 F 06/23/22 10:42 Pulse Rate 75 06/23/22 10:42 Respiratory Rate 14 06/23/22 10:42 Blood Pressure 126/80 06/23/22 10:42 Pulse Oximetry 98 06/23/22 10:42 Oxygen Delivery Me thod 06/23/22 10:42 [facility] - General Adult Medical Decision Making Patient presents with pain over her left foot ultrasound does show superficial thrombophlebitis she has no signs of cellulitis she is well-appearing here she stable for discharge she is to follow-up with PCP and return if worsening. Lab Data : 06/23/22 11:00 Radiology Impressions Foot X-Ray 06/23/22 10:50 IMPRESSION: No acute findings. Venous Duplex 06/23/22 10:50 IMPRESSION: 1. No evidence of deep vein thrombosis. 2. Left saphenous vein at the ankle with superficial thrombophlebitis Laboratory Results WBC 9.1 10^3/uL (4.0-10.0) 06/23/22 11:00 RBC 4.01 10^6/uL (4.1-5.3) L 06/23/22 11:00 Hgb 12.0 g/dL (11.5-15.3) 06/23/22 11:00 Hct 37.2 % (37.0-47.0) 06/23/22 11:00 MCV 92.8 fl (81-99) 06/23/22 11:00 MCH 29.9 pg (28.0-34.0) 06/23/22 11:00 MCHC 32.3 g/dL (30.0-36.0) 06/23/22 11:00 RDW 12.3 % (12.1-15.1) 06/23/22 11:00 Plt Count 221 10^3/cmm (130-400) 06/23/22 11:00 MPV 9.3 fL (7.4-10.4) 06/23/22 11:00 Neut % (Auto) 67.6 % 06/23/22 11:00 Lymph % (Auto) 23.6 % 06/23/22 11:00 [place] % (Auto) 7.1 % 06/23/22 11:00 Eos % (Auto) 1.3 % 06/23/22 11:00 Baso % (Auto) 0.2 % 06/23/22 11:00 Neut # (Auto) 6.17 10^3/uL (1.8-7.7) 06/23/22 11:00 Lymph # (Auto) 2.2 10^3/uL (0.8-4.8) 06/23/22 11:00 [place] # (Auto) 0.7 10^3/uL (0.2-0.9) 06/23/22 11:00 Eos # (Auto) 0.1 10^3/uL (0.0-0.8) 06/23/22 11:00 Baso # (Auto) 0.0 10^3/uL (0.0-0.1) 06/23/22 11:00 Nucleated RBC % (auto) 0 % 06/23/22 11:00 Nucleated RBCs # 0.0 /100WBC 06/23/22 11:00 Discharge Plan Discharge Patient Disposition: Home Clinical Impression: Superficial thrombophlebitis Qualifiers: Superficial thrombophlebitis-Involved body area: lower extremity Laterality: left Qualified Code(s): I80.02 - Phlebitis and thrombophlebitis of superficial vessels of left lower extremity Condition: Stable Prescriptions: No Action docusate sodium [Colace] 100 mg capsule 100 mg PO DAILY silverbiotics PO Essential Oils topical omeprazole 10 mg capsule,delayed release(DR/EC) 10 mg PO DAILY cholecalciferol (vitamin D3) 2,000 unit tablet 2,000 unit PO DAILY naproxen 250 mg tablet 250 mg PO DAILY PRN phenazopyridine [Azo Urinary Pain Relief] 95 mg tablet 95 mg PO DAILY PRN polyethylene glycol 3350 [Miralax] 17 gram/dose powder 17 gm PO DAILY PRN (DME) valium Vaginal Supp See Rx Instructions .Route .MEDSUPPLY Qty: 1 Rx Instructions: Benadryl, diazepam, lidocaine, baclofen Bladder Cocktail intravesical Rx Instructions: GENT, Heparin, Solucortef, Lidocaine, Bupivicaine. Instilled through catheter. fluconazole 150 mg tablet 150 mg PO DAILY PRN diclofenac sodium [Voltaren] 1 % gel 2 gm TOPICAL QID promethazine 25 mg tablet 12.5 mg PO TID PRN glycerine supp suppository miscellaneous DAILY PRN bisacodyl 5 mg tablet,delayed release (DR/EC) 5 mg PO DAILY PRN hydrocortisone 2.5 % cream 1 applic topical BID Qty: 30 0RF Rx Instructions: to affected area on lip no more than 3 wks lactulose 10 gram/15 mL (15 mL) solution 30 g PO BID sodium bicarbonate 1 mEq/mL (8.4 %) solution See Rx Instructions .ROUTE .COMPLEX Qty: 1250 3RF Rx Instructions: INSTILL INTO BLADDE DIRECTED; hydrocortisone 1 % cream 1 applic topical BID PRN (Reason: skin irritation) Qty: 28.4 0RF Rx Instructions: to nose no more than 2-3 weeks Flomax 0.4 mg capsule 0.4 mg PO DAILY Qty: 30 12RF methadone 10 mg tablet 20 mg PO BID 30 Days Qty: 120 0RF oxycodone 15 mg tablet 15 mg PO Q6H PRN (Reason: Pain) 30 Days Qty: 120 0RF diazepam [Valium] 5 mg tablet See Rx Instructions .ROUTE .COMPLEX Qty: 30 1RF Rx Instructions: daily as directed; nitrofurantoin monohyd/m-cryst 100 mg capsule See Rx Instructions .ROUTE .COMPLEX Qty: 60 3RF Dose Instruction: TAKE ONE CAPSULE BY MOUTH TWICE DAILY Rx Instructions: TAKE ONE CAPSULE BY MOUTH TWICE DAILY Benadryl 25 mg Capsule 25 mg PO DAILY estradiol 0.5 mg Tablet 0.5 mg PO DAILY progesterone micronized 100 mg Capsule 100 mg PO QAM baclofen 10 mg Tablet 10 mg PO TID PRN (Reason: Pain) trazodone 100 mg tablet 100 mg PO BEDTIME PRN Rx Instructions: ONLY TAKES 1/4 IF UNABLE TO SLEEP Discharge Orders: Discharge ED (Routine); Ordered 06/23/22 Ordered By: Meme Dejesus Referrals: Daniel Anglin MD [Primary Care Provider] - 1-3 days Discharge Diet: Advance as tolerated Discharge Activity: Resume usual activity Patient Instructions: Superficial Thrombophlebitis (ED) Coding Level of Care Code ED [employer] for [place] Fwd Exam Comprehensive
[2022-06-23] MEDS: cephALEXin 500 mg Capsule PO (10:58)
[2022-06-23 11:04] LABS: Basophils % 0.2 %; Eosinophils # 0.1 10^3/uL (0.0-0.8); Eosinophils % 1.3 %; Hematocrit 37.2 % (37.0-47.0); Lymphocytes # 2.2 10^3/uL (0.8-4.8); Lymphocytes % 23.6 %; Mean Corpuscular HGB Conc 32.3 g/dL (30.0-36.0); Mean Corpuscular Hemoglobin 29.9 pg (28.0-34.0); Mean Corpuscular Volume 92.8 fl (81-99); Mean Platelet Volume 9.3 fL (7.4-10.4); Monocytes # 0.7 10^3/uL (0.2-0.9); Monocytes % 7.1 %; Neutrophils # 6.17 10^3/uL (1.8-7.7); Neutrophils % 67.6 %; Nucleated Red Blood Cells % 0 %; Platelet Count 221 10^3/cmm (130-400); Red Blood Count 4.01 10^6/uL (4.1-5.3); Red Cell Distribution Width 12.3 % (12.1-15.1); White Blood Count 9.1 10^3/uL (4.0-10.0)
== END 2022-06-23 12:04 | disposition home or self-care (01) ==
PROVIDERS: Emergency Provider Emergency Medicine; PCP Family Medicine
DX: I80.02 Phlebitis and thrombophlebitis of superficial vessels of left lower extremity (principal); M79.672 Pain in left foot
CPT/HCPCS: 73630; 85025; 93971; 99284

== ENCOUNTER 2022-08-20 13:22 | Outpatient (CLI) | payer MEDICAID, SELFPAY ==
--- NOTE | 2022-08-20 13:35 | XR_ITS ---
WS: [id number] Exam: XR KUB [id number] Date/Time of Exam: 08/20/2022 1:35 PM Reason For Exam: Renal Calculi Comparison 02/12/2022. No bowel obstruction or free air. Calcifications superimpose both kidneys and apparently represent kn own renal stones. No sign of organ enlargement. Bony sclerosis and irregularity to the pubic symphysi s. Levoscoliosis of the lumbar spine. XR/XR KUB [id number] IMPRESSION: 1. No acute abdominal process. 2. Calcifications superimpose both kidneys and apparently represent known renal stones
== END 2022-08-20 13:23 | disposition home or self-care (01) ==
LOC: RAD 13:23
PROVIDERS: PCP Family Medicine; Visit Provider Urology
DX: Q61.5 Medullary cystic kidney (principal); N11.9 Chronic tubulo-interstitial nephritis, unspecified; N30.20 Other chronic cystitis without hematuria; N20.0 Calculus of kidney
CPT/HCPCS: 74018; 81003; 99213

== ENCOUNTER → 2022-09-12 10:58 | Outpatient (BNVA) | payer MEDICAID, SELFPAY | PROVIDERS: PCP Family Medicine; Visit Provider Podiatrist Foot & Ankle Surgery | DX: M20.41 Other hammer toe(s) (acquired), right foot (principal); L60.3 Nail dystrophy | CPT/HCPCS: 73630; 99204 ==

== ENCOUNTER → 2022-09-18 10:20 | Outpatient (BNVA) | payer MEDICAID, SELFPAY | PROVIDERS: PCP Family Medicine; Visit Provider Podiatrist Foot & Ankle Surgery | DX: M20.41 Other hammer toe(s) (acquired), right foot (principal); L60.3 Nail dystrophy | CPT/HCPCS: 11750; 28010 ==

== ENCOUNTER → 2022-11-20 14:19 | Outpatient (BNVA) | payer MEDICAID, SELFPAY | PROVIDERS: PCP Family Medicine; Visit Provider Urology | DX: Q61.5 Medullary cystic kidney (principal); N30.10 Interstitial cystitis (chronic) without hematuria; B37.31 Acute candidiasis of vulva and vagina; N11.9 Chronic tubulo-interstitial nephritis, unspecified; N20.0 Calculus of kidney | CPT/HCPCS: 81003; 99213 ==

== ENCOUNTER 2023-03-13 11:41 | Outpatient (CLI) | payer MEDICAID, SELFPAY ==
--- NOTE | 2023-03-13 12:00 | CTR_ITS ---
PROCEDURE INFORMATION: Exam: CT Abdomen And Pelvis Without Contrast Exam date and time: 03/13/2023 11:51 AM Age: 57 years old Clinical indication: Condition or disease; Kidney or ureter condition; Calculus (stone) in kidney; Prior surgery; Surgery date: 6+ months; Surgery type: Kidney stones, hyst; Additional info: Renal calculi, CT abd/pel stone protocol w/o contrast on 02/18/23 @1:00pm, TECHNIQUE: Imaging protocol: Computed tomography of the abdomen and pelvis without contrast. Radiation optimization: All CT scans at this facility use at least one of these dose optimization techniques: automated exposure control; mA and/or kV adjustment per patient size (includes targeted exams where dose is matched to clinical indication); or iterative reconstruction. REPORTING DATA: Count of CT and Cardiac NM exams in prior 12 months: This patient has received 0 known CTs and 0 known cardiac nuclear medicine studies in the 12 months prior to the current study. COMPARISON: CT kidney stone [id number] 06/17/2020 12:18 PM RADIATION DOSE METRICS: Total DLP (mGy-cm): 478.74 FINDINGS: Liver: Normal. No mass. Gallbladder and bile ducts: Normal. No calcified stones. No ductal dilation. Pancreas: Normal. No ductal dilation. Spleen: Normal. No splenomegaly. Adrenal glands: Normal. No mass. Kidneys and ureters: Normal. No hydronephrosis. Stomach and bowel: Constipation. Appendix: No evidence of appendicitis. Intraperitoneal space: Unremarkable. No free air. No significant fluid collection. Vasculature: Unremarkable. No abdominal aortic aneurysm. Lymph nodes: Unremarkable. No enlarged lymph nodes. Urinary bladder: Unremarkable as visualized. Reproductive: Left ovary 3.8 cm in simple cyst, similar to prior exams dating back to 06/06/2028, likely benign given stability. Bones/joints: Unremarkable. No acute fracture. Soft tissues: Small umbilical hernia containing omentum without bowel. Other findings: Bilateral punctate non-obstructing calyceal stones. CT/CT kidney stone [id number] IMPRESSION: 1. Bilateral punctate non-obstructing calyceal stones. 2. Left ovary 3.8 cm in simple cyst, similar to prior exams dating back to 06/06/2028, likely benign given stability. 3. Constipation. 4. Small umbilical hernia containing omentum without bowel.
== END 2023-03-13 11:42 | disposition home or self-care (01) ==
LOC: RAD 11:45
PROVIDERS: PCP Family Medicine; Visit Provider Urology
DX: N20.0 Calculus of kidney (principal); N83.292 Other ovarian cyst, left side; K42.9 Umbilical hernia without obstruction or gangrene; N30.10 Interstitial cystitis (chronic) without hematuria; Q61.5 Medullary cystic kidney; G89.29 Other chronic pain; K59.09 Other constipation
CPT/HCPCS: 74176; 81003; 99213

== ENCOUNTER 2023-06-27 14:34 | Outpatient (CLI) | payer MEDICAID, SELFPAY ==
--- NOTE | 2023-06-27 14:40 | MM_ITS ---
WS: [id number] SCREENING DIGITAL BREAST TOMOSYNTHESIS MAMMOGRAM WITH CAD HISTORY: Z00.00 - Encounter for general adult medical examination ... COMPARISON: 02/09/2021 and 09/24/2018 Bilateral CC and MLO with tomosynthesis and synthetic mammography submitted. Computer aided detection analyzed. Breast composition: There are scattered areas of fibroglandular density. Focal area of asymmetry whic h is more prominent in size and density in the lateral LEFT breast now measuring about [address] this is near the 3:00 axis of the LEFT breast. No additional suspicious changes. IMPRESSION: MM/[place] [id number] BI-RADS: 0-Incomplete: Need additional imaging evaluation FOLLOW UP: Need Additional Imaging LEFT breast: Spot compression views (CC and MLO). True ML. Ultrasound to follow if abnormality persists.
== END 2023-06-27 14:35 | disposition home or self-care (01) ==
PROVIDERS: PCP Family Medicine; Visit Provider Family Medicine
DX: Z12.31 Encounter for screening mammogram for malignant neoplasm of breast (principal); Z00.00 Encounter for general adult medical examination without abnormal findings
CPT/HCPCS: 77063; 77067

== ENCOUNTER 2023-07-30 10:17 | Outpatient (CLI) | payer MEDICAID, SELFPAY ==
--- NOTE | 2023-07-30 10:25 | US_ITS ---
WS: [id number] ADDITIONAL VIEWS LEFT MAMMOGRAM with tomosynthesis. LEFT BREAST ULTRASOUND HISTORY: abnormal mammogram, LEFT axillary pain. COMPARISON: 06/27/2023 and 02/09/2021 LEFT MAMMOGRAM: Spot compression views and true ML with tomosynthesis and sympathetic mammography. Asymmetries persist with spot compression views in the upper outer quadrant. There is no discrete mas s and no distortion. Ultrasound to follow. LEFT BREAST ULTRASOUND 2-D and color Doppler imaging submitted. Ultrasound is performed of the upper outer quadrant. There are several small cysts in the upper outer quadrant. The largest with a maximum diameter of 3 mm. No abnormality is noted in the axilla. IMPRESSION: US/US breast LT limited* [id number] BI-RADS: 2-Benign FOLLOW UP: 1 Year Follow-up
--- NOTE | 2023-07-30 10:45 | MM_ITS ---
WS: [id number] ADDITIONAL VIEWS LEFT MAMMOGRAM with tomosynthesis. LEFT BREAST ULTRASOUND HISTORY: abnormal mammogram, LEFT axillary pain. COMPARISON: 06/27/2023 and 02/09/2021 LEFT MAMMOGRAM: Spot compression views and true ML with tomosynthesis and sympathetic mammography. Asymmetries persist with spot compression views in the upper outer quadrant. There is no discrete mas s and no distortion. Ultrasound to follow. LEFT BREAST ULTRASOUND 2-D and color Doppler imaging submitted. Ultrasound is performed of the upper outer quadrant. There are several small cysts in the upper outer quadrant. The largest with a maximum diameter of 3 mm. No abnormality is noted in the axilla. IMPRESSION: MM/[place] [id number] BI-RADS: 2-Benign FOLLOW UP: 1 Year Follow-up
== END 2023-07-30 10:18 | disposition home or self-care (01) ==
LOC: RAD 10:17
PROVIDERS: PCP Family Medicine; Visit Provider Family Medicine
DX: R92.8 Other abnormal and inconclusive findings on diagnostic imaging of breast (principal); M79.622 Pain in left upper arm
CPT/HCPCS: 76642; 77061; G0279

== ENCOUNTER → 2023-09-27 09:52 | Outpatient (BNVA) | payer MEDICAID, SELFPAY | PROVIDERS: PCP Family Medicine; Visit Provider Nurse Practitioner Family | DX: Z85.828 Personal history of other malignant neoplasm of skin (principal); L57.8 Other skin changes due to chronic exposure to nonionizing radiation; L82.1 Other seborrheic keratosis; L81.4 Other melanin hyperpigmentation; D22.62 Melanocytic nevi of left upper limb, including shoulder | CPT/HCPCS: 99213 ==

== ENCOUNTER 2024-10-18 09:43 | Emergency (ER) | payer MEDICAID, SELFPAY ==
[2024-10-18 10:44] VITALS: BP 133/79; PULSE 74; RESP 16; TEMP 36.7; O2SAT 99; BMI 29.0
--- NOTE | 2024-10-18 11:10 | CTR_ITS ---
PROCEDURE INFORMATION: Exam: CT Abdomen And Pelvis Without Contrast Exam date and time: 10/18/2024 11:25 AM Age: 59 years old Clinical indication: Abdominal pain; Other: Bilateral flank, and low back; Additional info: Flank pain TECHNIQUE: Imaging protocol: Computed tomography of the abdomen and pelvis without contrast. Total images: 459 Radiation optimization: All CT scans at this facility use at least one of these dose optimization techniques: automated exposure control; mA and/or kV adjustment per patient size (includes targeted exams where dose is matched to clinical indication); or iterative reconstruction. COMPARISON: CT kidney stone [id number] 03/13/2023 11:51 AM RADIATION DOSE METRICS: Total DLP (mGy-cm): 777.99 FINDINGS: Diaphragm: A small hiatal hernia is present. Liver: Normal. No mass. Gallbladder and biliary ducts: Normal. No calcified stones. No ductal dilation. Pancreas: Normal. No ductal dilation. Spleen: Normal. No splenomegaly. Adrenal glands: Normal. No mass. Kidneys and ureters: Nonobstructive bilateral kidney stones measure as large as 5 mm. 4 mm and 5 mm distal left sided ureteral stones. Mild hydroureteronephrosis. Stomach and bowel: Unremarkable. No obstruction. No mucosal thickening. Appendix: No evidence of appendicitis. Intraperitoneal space: Unremarkable. No free air. No significant fluid collection. Vasculature: Unremarkable. No abdominal aortic aneurysm. Lymph nodes: Unremarkable. No enlarged lymph nodes. Urinary bladder: Unremarkable as visualized. Reproductive: Prior hysterectomy noted. 3.1 cm simple appearing left ovarian cyst. This finding is stable when compared to the prior exam. No further evaluation needed. Bones/joints: The pubic symphysis demonstrates degenerative changes. Soft tissues: Unremarkable. Other findings: Mild atherosclerotic disease burden is evident. CT/CT kidney stone [id number] IMPRESSION: 4 mm and 5 mm distal left sided ureteral stones. Mild hydroureteronephrosis.
--- NOTE | 2024-10-18 11:14 | ED_ITS ---
HPI - Female Genitourinary 2 General: Chief complaint: Urogenital-Female Stated complaint: lower back pain Time Seen by Provider: 10/18/24 11:05 Source: patient Mode of arrival: ambulatory Limitations: no limitations History of Present Illness: 59-year-old female has a history of medu llary sponge kidney disease had multiple kidney stones in the past states she been having bilateral flank pain for she states quite some time months but is gotten much worse over the last week and is concerned she is has another kidney stone she denies any fever denies any vomiting rates her pain a 7 out of 10 currently. Associated symptoms: Deny abdominal pain, headache(s) or nausea Related Data Home Medications Medication Instructions Recorded Confirmed Essential Oils topical 12/02/19 08/26/24 cholecalciferol (vitamin D3) 50 2,000 unit PO DAILY 12/02/19 08/26/24 mcg (2,000 unit) tablet docusate sodium 100 mg capsule 100 mg PO DAILY 12/02/19 08/26/24 (Colace) silverbiotics PO 12/02/19 08/26/24 Bladder Cocktail intravesical 03/07/20 08/26/24 diphenhydramine HCl 25 mg capsule 25 mg PO DAILY 06/17/20 08/26/24 (Benadryl) diclofenac sodium 1 % topical gel 2 gm topical QID 07/01/20 08/26/24 (Voltaren) naproxen 250 mg tablet 250 mg PO DAILY PRN 10/04/20 08/26/24 phenazopyridine 95 mg tablet (Azo 95 mg PO DAILY PRN 10/04/20 08/26/24 Urinary Pain Relief) polyethylene glycol 3350 17 17 gm PO DAILY PRN 10/04/20 08/26/24 gram/dose oral powder (Miralax) trazodone 100 mg tablet 100 mg PO BEDTIME PRN 10/04/20 08/26/24 valium Vaginal Supp #1 ea 10/26/20 08/26/24 bisacodyl 5 mg tablet,delayed 5 mg PO DAILY PRN 08/08/21 08/26/24 release glycerine supp miscellaneous DAILY PRN 08/08/21 08/26/24 promethazine 25 mg tablet 12.5 mg PO TID PRN 08/08/21 08/26/24 Previous Rx's Medication Instructions Recorded sodium bicarbonate 1 mEq/mL (8.4 See Rx Instructions .Route 11/10/20 %) intravenous solution .COMPLEX #1,250 mL hydrocortisone 2.5 % topical cream 1 applic topical BID skin 05/18/21 irritation #30 grams hydrocortisone 1 % topical cream 1 applic topical BID PRN skin 05/29/21 irritation #28.4 grams tamsulosin 0.4 mg capsule (Flomax) 0.4 mg PO DAILY #30 caps 07/26/21 baclofen 10 mg tablet See Rx Instructions .Route 10/09/22 .COMPLEX #90 tabs nitrofurantoin See Rx Instructions .Route 10/18/22 monohydrate/macrocrystals 100 mg .COMPLEX #60 caps capsule fluconazole 150 mg tablet 150 mg PO DAILY PRN yeast 11/20/22 infection #10 tabs heparin, porcine (PF) 5,000 See Rx Instructions .Route 02/14/23 unit/0.5 mL injection solution .COMPLEX #25 mL omeprazole 20 mg capsule,delayed See Rx Instructions .Route 03/05/23 release .COMPLEX #60 caps diazepam 5 mg tablet 5 mg PO DAILY #90 tabs 03/25/23 sulfamethoxazole 800 See Rx Instructions .Route 03/25/23 mg-trimethoprim 160 mg tablet .COMPLEX #60 tabs lactulose 10 gram/15 mL oral See Rx Instructions .Route 11/04/23 solution .COMPLEX #240 mL progesterone micronized 100 mg 100 mg PO QAM #30 caps 11/19/23 capsule estradiol 0.5 mg tablet See Rx Instructions .Route 09/08/24 .COMPLEX #30 tabs methadone 10 mg tablet 20 mg (2 x 10 mg) PO BID 30 days 09/24/24 #120 tabs oxycodone 15 mg tablet 15 mg PO Q6H PRN Pain 30 days #120 09/24/24 tabs Allergies Allergy/AdvReac Type Severity Reaction Status Date / Time latex Allergy NA Verified 10/18/24 10:48 levofloxacin [From Levaquin] Allergy ALGY-Hives/ Verified 10/18/24 10:48 N[place] meperidine [From Demerol] Allergy NA Verified 10/18/24 10:48 methylparaben Allergy NA Verified 10/18/24 10:48 Penicillins Allergy NA Verified 10/18/24 10:48 prochlorperazine Allergy NA Verified 10/18/24 10:48 [From Compazine] Review of Systems 2 Const: Denies: fever(s), chills, body aches or change in appetite ENMT: Denies: throat pain or dental pain Card: Denies: chest pain Resp: Denies: dyspnea GI: Denies: abdominal pain, nausea, vomiting or diarrhea : Reports: flank pain; Denies: dysuria Musc: Denies: neck pain or back pain Skin/Breast: Denies: rash Neuro: Denies: headache(s) PFSH ED 2 PFSH: Medical History Hernia Medullary sponge kidney Chronic interstitial cystitis Chronic pyelonephritis Renal calculi Surgical History H/O foot surgery S/P tonsillectomy H/O hernia repair H/O: hysterectomy H/O lithotripsy H/O dilation and curettage H/O: hysterectomy H/O lithotripsy S/P cystoscopy with ureteral stent placement Family History Father , at age 64 CAD (coronary artery disease) Diabetes Stroke Hypertension Hyperlipidemia Mother Hypertension Social History Smoking and tobacco/nicotine status: unknown if used tobacco/nicotine Alcohol intake: never Substance/Drug Use: never Marital status: Current occupational status: disabled Current gender identity: Female Physical Exam 2 Const: COMMON NORMALS: no acute distress, patient oriented x3 and healthy appearing HENMT: COMMON NORMALS: normocephalic and atraumatic HEAD & SCALP: n ormocephalic and atraumatic Eye: COMMON NORMALS: conjunctivae normal CONJUNCTIVA: Yes conjunctivae normal Neck/C-Spine: COMMON NORMALS: full ROM and supple Chest: COMMONS NORMALS: normal inspection of the chest Resp: COMMON NORMALS: normal respiratory effort Cardio: COMMON NORMALS: regular rate, regular rhythm and No murmurs present (Cardio) RATE: regular rate RHYTHM: regular rhythm GI: COMMON NORMALS: Normal to inspection, nondistended, normoactive bowel sounds present, Soft to palpation, non-tender and no masses PALPATION: Yes Soft to palpation Extremity: COMMON NORMALS: normal to inspection and full ROM Neuro: COMMON NORMALS: patient oriented x3, moves all extremities and no focal motor deficits Psych: COMMON NORMALS: mental status grossly normal, Normal thought process present and cooperative THOUGHT PROCESS: Normal thought process present Skin: COMMON NORMALS: no rashes or lesions noted and no wounds GENERAL SKIN EXAM: no rashes or lesions noted Course 2 Vital Signs: Vital signs: Vital Signs Temperature 98.1 F 10/18/24 10:44 Pulse Rate 72 10/18/24 11:23 Respiratory Rate 16 10/18/24 10:44 Blood Pressure 146/67 10/18/24 11:23 Pulse Oximetry 96 10/18/24 11:23 Oxygen Delivery Me thod Room Air 10/18/24 11:23 MDM - Female Medical Decision Making Patient presents here with kidney stone she has long history of kidney stones pain here is improved she has no UTI she follows with urology and [facility] is to follow-up there return if worsening she understands agrees to plan. Medical Records I reviewed the patient's medical records. Lab Data I reviewed the patient's lab results. 10/18/24 11:19 10/18/24 11:19 Radiology Impressions Abdomen/Pelvis CT 10/18/24 11:10 IMPRESSION: 4 mm and 5 mm distal left sided ureteral stones. Mild hydroureteronephrosis. Laboratory Results WBC 6.47 10^3/uL (3.29-11.43) 10/18/24 11:19 RBC 4.74 10^6/uL (3.85-5.65) 10/18/24 11:19 Hgb 13.90 g/dL (11.27-16.99) 10/18/24 11:19 Hct 42.7 % (36-47) 10/18/24 11:19 MCV 90.1 fl (85-98) 10/18/24 11:19 MCH 29.3 pg (27-33) 10/18/24 11:19 MCHC 32.6 g/dL (30-55) 10/18/24 11:19 RDW 12.8 % (12.1-15.1) 10/18/24 11:19 Plt Count 260 10^3/cmm (157-399) 10/18/24 11:19 MPV 9.1 fL (7.4-10.4) 10/18/24 11:19 Neut % (Auto) 68.8 % 10/18/24 11:19 Lymph % (Auto) 25.0 % 10/18/24 11:19 [place] % (Auto) 4.9 % 10/18/24 11:19 Eos % (Auto) 0.5 % 10/18/24 11:19 Baso % (Auto) 0.5 % 10/18/24 11:19 Neut # (Auto) 4.45 10^3/uL (1.8-7.7) 10/18/24 11:19 Lymph # (Auto) 1.6 10^3/uL (0.8-4.8) 10/18/24 11:19 [place] # (Auto) 0.3 10^3/uL (0.2-0.9) 10/18/24 11:19 Eos # (Auto) 0.0 10^3/uL (0.0-0.8) 10/18/24 11:19 Baso # (Auto) 0.0 10^3/uL (0.0-0.1) 10/18/24 11:19 Nucleated RBC % (auto) 0 % 10/18/24 11:19 Nucleated RBCs # 0.0 /100WBC 10/18/24 11:19 Sodium 138 mmol/L (136-145) 10/18/24 11:19 Potassium 4.1 mmol/L (3.5-5.1) 10/18/24 11:19 Chloride 102 mmol/L (98-107) 10/18/24 11:19 Carbon Dioxide 25 mmol/L (22-29) 10/18/24 11:19 Anion Gap 15.1 (5-19) 10/18/24 11:19 BUN 14 mg/dL (8-23) 10/18/24 11:19 Creatinine 0.6 mg/dL (0.5-0.9) 10/18/24 11:19 GFR Calculation 102.0 mL/min (90-130) 10/18/24 11:19 Glucose 108 mg/dL (65-115) 10/18/24 11:19 Calculated Osmolality 287 mOsm/kg (285-295) 10/18/24 11:19 Calcium 9.5 mg/dL (8.5-10.5) 10/18/24 11:19 Total Bilirubin 0.4 mg/dL (0.15-1.2) 10/18/24 11:19 AST 28 U/L (0-32) 10/18/24 11:19 ALT 31 U/L (0-33) 10/18/24 11:19 Alkaline Phosphatase 84 U/L (35-105) 10/18/24 11:19 Total Protein 7.1 g/dL (6.6-8.7) 10/18/24 11:19 Albumin 4.4 g/dL (3.5-5.2) 10/18/24 11:19 Globulin 2.7 g/dL (1.3-4.6) 10/18/24 11:19 Urine Color Yellow (Yellow) 10/18/24 11:18 Urine Appearance Clear (CLEAR) 10/18/24 11:18 Urine pH 5.5 (5-7) 10/18/24 11:18 Ur Specific [place] 1.025 (1.005-1.030) 10/18/24 11:18 Urine Protein Negative (Negative) 10/18/24 11:18 Urine Glucose (UA) Negative (Normal) 10/18/24 11:18 Urine Ketones Trace (Negative) 10/18/24 11:18 Urine Blood Negative (Negative) 10/18/24 11:18 Urine Nitrate Negative (Negative) 10/18/24 11:18 Urine Bilirubin Negative (Negative) 10/18/24 11:18 Urine Urobilinogen 0.2 mg/dL (Negative) 10/18/24 11:18 Ur Leukocyte Esterase Trace (Negative) A 10/18/24 11:18 Urine RBC 0-2 /hpf (0-2) 10/18/24 11:18 Urine WBC 6-10 /hpf (0-5) 10/18/24 11:18 Ur Squamous Epith Cells 0-5 /hpf (0-5) 10/18/24 11:18 Amorphous Sediment Not Reportable 10/18/24 11:18 Urine Bacteria None seen /hpf (NONE) 10/18/24 11:18 Hyaline Casts 1.21 /lpf 10/18/24 11:18 All radiology interpretation(s) finalized by discharge Discharge Plan Discharge Patient Disposition: Home Clinical Impression: Kidney stone Condition: Stable Prescriptions: No Action docusate sodium [Colace] 100 mg capsule 100 mg PO DAILY silverbiotics PO Essential Oils topical cholecalciferol (vitamin D3) 2,000 unit tablet 2,000 unit PO DAILY naproxen 250 mg tablet 250 mg PO DAILY PRN phenazopyridine [Azo Urinary Pain Relief] 95 mg tablet 95 mg PO DAILY PRN polyethylene glycol 3350 [Miralax] 17 gram/dose powder 17 gm PO DAILY PRN (DME) valium Vaginal Supp See Rx Instructions .Route .MEDSUPPLY Qty: 1 Rx Instructions: Benadryl, diazepam, lidocaine, baclofen Bladder Cocktail intravesical Rx Instructions: GENT, Heparin, Solucortef, Lidocaine, Bupivicaine. Instilled through catheter. diclofenac sodium [Voltaren] 1 % gel 2 gm TOPICAL QID promethazine 25 mg tablet 12.5 mg PO TID PRN glycerine supp suppository miscellaneous DAILY PRN bisacodyl 5 mg tablet,delayed release (DR/EC) 5 mg PO DAILY PRN hydrocortisone 2.5 % cream 1 applic topical BID Qty: 30 0RF Rx Instructions: to affected area on lip no more than 3 wks fluconazole 150 mg tablet 150 mg PO DAILY PRN (Reason: yeast infection) Qty: 10 12RF sodium bicarbonate 1 mEq/mL (8.4 %) solution See Rx Instructions .ROUTE .COMPLEX Qty: 1250 3RF Rx Instructions: INSTILL INTO BLADDE DIRECTED; hydrocortisone 1 % cream 1 applic topical BID PRN (Reason: skin irritation) Qty: 28.4 0RF Rx Instructions: to nose no more than 2-3 weeks Flomax 0.4 mg capsule 0.4 mg PO DAILY Qty: 30 12RF baclofen 10 mg tablet See Rx Instructions .ROUTE .COMPLEX Qty: 90 3RF Dose Instruction: TAKE 1 TABLET BY MOUTH THREE TIMES DAILY NEEDED Rx Instructions: TAKE 1 TABLET BY MOUTH THREE TIMES DAILY NEEDED nitrofurantoin monohyd/m-cryst 100 mg capsule See Rx Instructions .ROUTE .COMPLEX Qty: 60 12RF Dose Instruction: TAKE ONE CAPSULE BY MOUTH TWICE DAILY Rx Instructions: TAKE ONE CAPSULE BY MOUTH TWICE DAILY heparin, porcine (PF) 5,000 unit/0.5 mL solution See Rx Instructions .ROUTE .COMPLEX Qty: 25 12RF Rx Instructions: Instilled into bladder 2 times per week omeprazole 20 mg capsule,delayed release(DR/EC) See Rx Instructions .ROUTE .COMPLEX Qty: 60 11RF Dose Instruction: TAKE 1 CAPSULE BY MOUTH TWO TIMES DAILY Rx Instructions: TAKE 1 CAPSULE BY MOUTH TWO TIMES DAILY sulfamethoxazole-trimethoprim 800-160 mg tablet See Rx Instructions .ROUTE .COMPLEX Qty: 60 12RF Dose Instruction: TAKE ONE TABLET BY MOUTH TWICE DAILY Rx Instructions: TAKE ONE TABLET BY MOUTH TWICE DAILY diazepam 5 mg tablet 5 mg PO DAILY Qty: 90 1RF lactulose 10 gram/15 mL solution See Rx Instructions .ROUTE .COMPLEX Qty: 240 3RF Dose Instruction: take 30ml BY MOUTH ONCE daily NEEDED Rx Instructions: take 30ml BY MOUTH ONCE daily NEEDED progesterone micronized 100 mg capsule 100 mg PO QAM Qty: 30 11RF estradiol 0.5 mg tablet See Rx Instructions .ROUTE .COMPLEX Qty: 30 11RF Dose Instruction: TAKE 1 TABLET BY MOUTH EVERY DAY Rx Instructions: TAKE 1 TABLET BY MOUTH EVERY DAY methadone 10 mg tablet 20 mg PO BID 30 Days Qty: 120 0RF oxycodone 15 mg tablet 15 mg PO Q6H PRN (Reason: Pain) 30 Days Qty: 120 0RF Benadryl 25 mg Capsule 25 mg PO DAILY trazodone 100 mg tablet 100 mg PO BEDTIME PRN Rx Instructions: ONLY TAKES 1/4 IF UNABLE TO SLEEP Discharge Orders: Discharge ED (Routine); Ordered 10/18/24 Ordered By: Meme Dejesus Referrals: Daniel Anglin MD [Primary Care Provider] - Discharge Diet: Advance as tolerated Discharge Activity: Resume usual activity Patient Instructions: Kidney Stones (ED) Coding Level of Care Code ED Lead Athlete for Isha Encinas
[2024-10-18 11:23] VITALS: BP 146/67; PULSE 72; O2SAT 96
[2024-10-18 11:25] LABS: Basophils % 0.5 %; Eosinophils % 0.5 %; Hematocrit 42.7 % (36-47); Lymphocytes # 1.6 10^3/uL (0.8-4.8); Mean Corpuscular HGB Conc 32.6 g/dL (30-55); Mean Corpuscular Hemoglobin 29.3 pg (27-33); Mean Corpuscular Volume 90.1 fl (85-98); Mean Platelet Volume 9.1 fL (7.4-10.4); Monocytes # 0.3 10^3/uL (0.2-0.9); Monocytes % 4.9 %; Neutrophils # 4.45 10^3/uL (1.8-7.7); Neutrophils % 68.8 %; Nucleated Red Blood Cells % 0 %; Platelet Count 260 10^3/cmm (157-399); Red Blood Count 4.74 10^6/uL (3.85-5.65); Red Cell Distribution Width 12.8 % (12.1-15.1); White Blood Count 6.47 10^3/uL (3.29-11.43)
[2024-10-18 11:27] LABS: Bilirubin Urine Negative (Negative); Blood Urine Negative (Negative); Glucose Urine UA Negative (Normal); Ketones Urine Trace (Negative); Leukocyte Esterase Urine Trace (Negative); Nitrate Urine Negative (Negative); Protein Urine Negative (Negative); Specific Gravity, Urine 1.025 (1.005-1.030); Urine Appearance Clear (CLEAR); Urine Color Yellow (Yellow); Urobilinogen Urine 0.2 mg/dL (Negative); pH Urine 5.5 (5-7)
[2024-10-18 11:32] LABS: Add Urine Microscopic? YES; Bacteria Urine None Seen /hpf; Hyaline Casts Urine 1.21 /lpf; RBC Urine 0-2 /hpf (0-2); Squamous Epithelial Cell Urine 0-5 /hpf (0-5)
[2024-10-18] MEDS: ketorolac 30 mg/mL INJ IVP (11:37)
[2024-10-18 11:44] LABS: Alanine Aminotransferase 31 U/L (0-33); Albumin Level 4.4 g/dL (3.5-5.2); Alkaline Phosphatase 84 U/L (35-105); Anion Gap 15.1 (5-19); Aspartate Amino Transferase 28 U/L (0-32); Blood Urea Nitrogen 14 mg/dL (8-23); Calcium 9.5 mg/dL (8.5-10.5); Carbon Dioxide 25 mmol/L (22-29); Chloride 102 mmol/L (98-107); Creatinine Clr Calc Pharmacy 111.0131; Globulin 2.7 g/dL (1.3-4.6); Glucose 108 mg/dL (65-115); Osmolality Calculated 287 mOsm/kg (285-295); Potassium 4.1 mmol/L (3.5-5.1); Sodium 138 mmol/L (136-145); Total Bilirubin 0.4 mg/dL (0.15-1.2); Total Protein 7.1 g/dL (6.6-8.7)
[2024-10-18 12:23] VITALS: BP 128/70; PULSE 59; O2SAT 100
== END 2024-10-18 12:24 | disposition home or self-care (01) ==
PROVIDERS: Emergency Provider Emergency Medicine; PCP Family Medicine
DX: N20.0 Calculus of kidney (principal); Z87.442 Personal history of urinary calculi
CPT/HCPCS: 36415; 74176; 80053; 81001; 85025; 96374; 99285; J1885

== ENCOUNTER 2024-11-25 10:24 | Outpatient (CLI) | payer MEDICAID, SELFPAY ==
--- NOTE | 2024-11-25 10:29 | US_ITS ---
WS: [id number] ULTRASOUND RENAL TECHNIQUE: Ultrasound examination of both kidneys. CLINICAL INFORMATION: Nephrolithiasis COMPARISON: CT 10/18/2024 FINDINGS: Multiple bilateral subcentimeter renal parenchymal and calyceal calculi. RIGHT: Right kidney is normal in size and appearance. Echogenicity: Normal. Cortical thickness: 1.0 cm; Normal. Hydronephrosis: None. Perinephric fluid: None. Right kidney measures: 10.1 cm x 4.0 cm x 4.4 cm. LEFT: Small LEFT renal cyst measuring 1.2 x 1.0 x 1.1 cm. Left kidney is normal in size and appearance. Echogenicity: Normal. Cortical thickness: 1.0 cm; Normal. Hydronephrosis: None. Perinephric fluid: None. Left kidney measures: 9.7 cm x 4.8 cm x 4.6 cm. Normal visualized aorta. Bladder is partially decompressed. US/US renal BI* [id number] IMPRESSION: 1. No hydronephrosis in either kidney. 2. Multiple bilateral subcentimeter renal parenchymal and calyceal calculi. 3. LEFT renal cyst measuring 1.2 x 1.0 x 1.1 cm
--- NOTE | 2024-11-25 10:44 | XR_ITS ---
WS: [email or web address] Exam: XR [id number] Date/Time of Exam: 11/25/2024 10:45 AM Reason For Exam: Nephrolithiasis No bowel obstruction or pneumoperitoneum. Small calcifications superimpose both renal silhouettes and apparently represent known renal stones. Moderate amount retained stool in the colon. No sign of organ enlargement. Bony sclerosis the pubic symphysis. Mild levoscoliosis of the L-spine. XR/XR [id number] [id number] IMPRESSION: 1. Calcifications superimposing both kidneys apparently representing known collins l stones. 2. No acute finding. Constipation.
== END 2024-11-25 10:25 | disposition home or self-care (01) ==
LOC: RAD 10:25
PROVIDERS: PCP Family Medicine; Visit Provider Urology
DX: N30.10 Interstitial cystitis (chronic) without hematuria (principal); N20.0 Calculus of kidney; N28.89 Other specified disorders of kidney and ureter; K59.00 Constipation, unspecified; R93.89 Abnormal findings on diagnostic imaging of other specified body structures; M41.86 Other forms of scoliosis, lumbar region
CPT/HCPCS: 74018; 76770

== ENCOUNTER → 2024-12-09 14:49 | Outpatient (BNVA) | payer MEDICAID, SELFPAY | PROVIDERS: PCP Family Medicine; Visit Provider Nurse Practitioner Family | DX: L82.1 Other seborrheic keratosis (principal); D18.01 Hemangioma of skin and subcutaneous tissue; Z08 Encounter for follow-up examination after completed treatment for malignant neoplasm; Z85.828 Personal history of other malignant neoplasm of skin; L91.8 Other hypertrophic disorders of the skin; R20.8 Other disturbances of skin sensation; L53.8 Other specified erythematous conditions; L29.89 Other pruritus | CPT/HCPCS: 17110; 99213 ==

== ENCOUNTER 2025-02-15 13:34 | Outpatient (CLI) | payer MEDICAID, SELFPAY ==
--- NOTE | 2025-02-15 13:42 | XR_ITS ---
WS: [email or web address] Exam: XR [id number] Date/Time of Exam: 02/15/2025 1:52 PM Reason For Exam: NEPHROLITHIASIS Comparison 11/25/2024. No bowel obstruction or free air. Large amount retained stool in the colon. No sign of organ enlargement. Bony structures are intact. XR/XR [id number] [id number] IMPRESSION: 1. Constipation. No acute finding.
--- NOTE | 2025-02-15 13:42 | US_ITS ---
WS: [id number] RENAL ULTRASOUND HISTORY: NEPHROLITHIASIS COMPARISON: 11/25/2024, CT 10/18/2024 TECHNIQUE: 2-D and color Doppler imaging of the kidney submitted. Right kidney: 10.9 cm x 4.9 cm x 4.6 cm. Cortex: 1.0 cm Normal echogenicity with no hydronephrosis or mass. Left kidney: 11.1 cm x 4.7 cm x 4.6 cm. Cortex: 0.9 cm Normal size kidney. Central renal calcification measures 0.8 x 1.0 x 0.6 cm. Cortical cyst reidentified 1.7 x 0.9 x 1.6 cm appears to be in the mid kidney. Aorta: Normal. Urinary Bladder: Mildly distended. No mass. US/US renal BI* [id number] IMPRESSION: 1. No hydronephrosis or solid mass identified. 2. Stable LEFT renal cyst with a maximum diameter of 1.7 cm. 3. Central LEFT renal calcification 0.8 x 1.0 x 0.6 cm. 4. Multiple bilateral calcifications were noted on a prior CT from 10/18/2024. These calcifications are not all identified by ultrasound.
== END 2025-02-15 13:35 | disposition home or self-care (01) ==
PROVIDERS: PCP Family Medicine; Visit Provider Urology
DX: N20.0 Calculus of kidney (principal); N28.1 Cyst of kidney, acquired; N28.89 Other specified disorders of kidney and ureter; K59.00 Constipation, unspecified
CPT/HCPCS: 74018; 76770